=== PATIENT | female | born 1965 | race Caucasian/White ===

== ENCOUNTER 2022-06-04 07:44 | Outpatient (REF) | payer OTHER, SELFPAY ==
[2022-06-04 11:54] LABS: Hematocrit 43.3 % (37.0-47.0); Hemoglobin 14.4 g/dl (12.0-16.0); Mean Corpuscular HGB Conc 33.3 g/dl (31.0-35.0); Mean Corpuscular Hemoglobin 31.5 pg (27.0-33.0); Mean Corpuscular Volume 94.7 fL (80.0-98.0); Platelet Count 209 X10*3/uL (160-400); Red Blood Count 4.57 X10*6/uL (4.20-5.50); Red Cell Distribution Width 12.6 % (11.0-16.0)
[2022-06-04 13:08] LABS: Alanine Aminotransferase 7 U/L (0-31); Albumin Level 4.1 g/dL (3.5-5.0); Alkaline Phosphatase 104 U/L (39-117); Anion Gap 15 (12-20); Aspartate Amino Transferase 16 U/L (5-31); Blood Urea Nitrogen 8 mg/dL (9-16); Calcium 9.5 mg/dL (8.4-10.2); Carbon Dioxide 24 mmol/L (22-29); Chloride 107 mmol/L (96-108); Cholesterol 268 mg/dL; Estimated Glomerular Filt Rate > 60; Glucose Fasting 88 mg/dL (60-99); HDL Cholesterol 32 mg/dL; LDL Cholesterol Calculated 203 mg/dl; Sodium 142 mmol/L (135-145); Total Protein 6.7 g/dL (6.5-8.0); Triglycerides 165 mg/dL
[2022-06-04 13:09] LABS: TSH reflex Free T4 3.18 uIU/mL (0.32-4.0)
== END 2022-06-04 07:45 | disposition home or self-care (01) ==
LOC: HO.WFDLDS 07:44
PROVIDERS: Visit Provider Nurse Practitioner Family
DX: Z00.00 Encounter for general adult medical examination without abnormal findings (principal)
CPT/HCPCS: 36415; 80053; 80061; 82306; 84443; 85027

== ENCOUNTER → 2022-09-21 07:35 | Outpatient (BNVA) | payer OTHER, SELFPAY | PROVIDERS: PCP Nurse Practitioner Family; Visit Provider Physician Assistant ==

== ENCOUNTER 2022-10-07 07:33 | Outpatient (REF) | payer OTHER, SELFPAY | END 2022-10-07 07:34 | disposition home or self-care (01) | LOC: HO.WFDLDS 07:33 | PROVIDERS: Visit Provider Nurse Practitioner Family | DX: E55.9 Vitamin D deficiency, unspecified (principal) | CPT/HCPCS: 36415; 82306 ==

== ENCOUNTER 2022-10-08 09:08 | Outpatient (AMB) | payer OTHER, SELFPAY ==
[2022-10-08 09:16] VITALS: BP 132/80; PULSE 87; RESP 15; TEMP 36.5; O2SAT 98; BMI 31.1
--- NOTE | 2022-10-08 09:16 | A.OFFPC_ITS ---
Vital Signs 10/08/22 09:16 Height 5 ft 6 in Weight 193 lb BMI 31.1 BP 132/80 Blood Pressure Location Rt brachial Position Sitting Respiration 15 Pulse 87 Pulse Source Pulse Oximeter Temp 97.7 F Temp Source Temporal Artery Scan Pulse Oximetry (%) 98 Oxygen Delivery Method Room Air Intake Visit Reasons: 3 mos anxiety/depression Intake Note: Patient is following up with anxiety and depression and states things are going well. 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 Accompanied by: Self / Same As Patient Allergies No Known Allergies Allergy (Verified 10/08/22 10:25) Medication List - Last Reconciled 10/08/22 by John Bejarano CNP bisacodyl (Dulcolax (bisacodyl)) 20 mg (4 x 5 mg) PO ONCE 1 day cholecalciferol (vitamin D3) 25 mcg PO DAILY 90 days cholecalciferol (vitamin D3) 1,250 mcg PO QWEEK 8 weeks hydroxyzine HCl 25 mg PO BID PRN 30 days naltrexone 50 mg PO DAILY 30 days polyethylene glycol 3350 (Miralax) 238 grams PO ONCE 1 day sertraline 100 mg PO DAILY 90 days trazodone 50 mg PO BEDTIME PRN 90 days Tobacco use date assessed: 07/02/22 Dental Screening Dental Screen Date: 10/08/22 Did you have a dental visit in the last 12 months?: No Did you have a dental problem in the last 6 months where you did not have access to dental care?: No Was dental information given to patient?: Patient has dentist HPI HPI Comments History of Present Illness Details 48-year-old female presents for anxiety and depression follow-up She notes she has been taking her medications as prescribed with control symptoms She reports improved sleep No acute symptoms today She admits to smoking 3 packs of cigarette weekly She notes she has not consumed alcohol in the past 6 months She notes she has not called back to schedule appointments for mammogram and colonoscopy [facility] Medical History Anxiety Depression EtOH dependence Surgical History History of ankle surgery Family History Mother Hypertension Thyroid disorder Social History (Reviewed 10/08/22 @ 09:25 by Maureen Han Household Members: None Housing: House Alcohol intake: former Patient Tobacco Use Status: Current someday Tobacco user Cigarettes Per Day: 5 e-Cigarette/Vaping Use: Never Used service: No Current occupational status: employed Current occupation: [employer] Cognitive needs: No Hearing needs: No Vision needs: Yes Questionnaire PHQ-9 Over the last 2 weeks, how often have you been bothered by any of the following problems? 1. Little interest or pleasure in doing things: not at all 2. Feeling down, depressed, or hopeless: not at all 3. Trouble falling or staying asleep, or sleeping too much: not at all 4. Feeling tired or having little energy: not at all 5. Poor appetite or overeating: not at all 6. Feeling bad about yourself - or that you are a failure or have let yourself or your family down: not at all 7. Trouble concentrating on things, such as reading the newspaper or watching television: not at all 8. Moving or speaking so slowly that other people could have noticed. Or the opposite - being so fidgety or restless that you have been moving around a lot more than usual: not at all 9. Thoughts that you would be better off or of hurting yourself in some way: not at all Total score: 0 Depression Screening Interpretation: Negative 72059 - PHQ-9 Billing: Yes Source: Developed by Drs. Gaston Purvis, Ellie Medina, Lamine Rockwell and colleagues, with an educational darleen from [employer]. Thrive Questionnaire Date Thrive assessed: 06/02/22 JERALD-7 AMB Questionnaire JERALD-7 Date JERALD - 7 assessed: 10/08/22 Feeling nervous, anxious, or on edge: 0 = Not at all Not being able to stop or control worryin = Not at all Worrying too much about different things: 0 = Not at all Trouble relaxin = Not at all Being so restless that it is hard to sit still: 0 = Not at all Becoming easily annoyed or irritable: 0 = Not at all Feeling afraid as if something awful might happen: 0 = Not at all Total JERALD-7 score (0-4 normal; 5-9 mild; 10-14 moderate; 15-21 severe): 0 Source: Developed by Drs. Gaston Purvis, Ellie Medina, Lamine Rockwell and colleagues, with an educational darleen from [employer]. JERALD-7 Assessment Billing JERALD-7 Assessment Tool: JERALD-7 Assessment 97769 Review of Systems Const Details: Const Denies chills, Denies fatigue, Denies fever(s), Denies headache(s) and Denies weakness ENT Denies change in vision, Denies dizziness, Denies headache(s), Denies hearing loss, Denies nasal congestion, Denies sinus pain, Denies sinus pressure and Denies sore throat Resp Denies cough, Denies dyspnea, Denies wheezing and Denies other (shortness of breath) Cardio Denies chest pain, Denies lightheadedness, Denies dyspnea and Denies other (palpitations) Neuro Denies dizziness, Denies headache(s), Denies numbness, Denies tingling and Denies weakness Psych Denies anxiety, Denies depression, Denies memory?loss Endo Denies fatigue Aller/Immun Denies wheezing Physical exam (Primary Care) Vital Signs: Last Vital Signs Temp 97.7 F 10/08/22 09:16 Pulse 87 10/08/22 09:16 Resp 15 10/08/22 09:16 BP 132/80 10/08/22 09:16 Pulse Ox 98 10/08/22 09:16 Oxygen Delivery Method Room Air 10/08/22 09:16 BMI result Body Mass Index 31.1 Tobacco/Smoking Status: Tobacco use Status Tobacco use date assessed 07/02/22 10/08/22 09:25 Patient Tobacco Use Status Current someday Tobacco 10/08/22 09:25 e-Cigarette/Vaping Use Never Used 10/08/22 09:25 PHQ-9: PHQ-9 Score PHQ-9: Total score 0 10/08/22 09:25 Depression Screening Interpretation: Negative Thrive Assessment: Date of Thrive Assessment Date Thrive assessed 06/02/22 10/08/22 09:25 Const Other: Const General: well developed; No acute distress Nutritional Appearance: well nourished Orientation/consciousness: patient oriented x3 HEENT Head: Yes normocephalic and Yes atraumatic Eyes General: appearance normal, both eyes and all related structures Pupils: Equal, round and reactive pupils present EOM: EOMs intact bilaterally Resp Effort & Inspection: normal respiratory effort Auscultation: clear to auscultation bilaterally Cardio Rate: regular rate Rhythm: regular rhythm Heart sounds: S1 normal heart sound present, S2 normal heart sound present, no gallops, no murmurs and no rubs Bruits: no abdominal aortic bruits and no carotid bruits Neuro General: patient oriented x3 and gait normal, no focal neuro deficit Cranial nerves: Yes Equal, round and reactive pupils present Psych Appearance: grossly normal Affect: normal affect Attitude: cooperative Thought process: Normal thought process present Assessment and Plan Assessment & Plan (1) Depression: Code(s): F32.A - Depression, unspecified Plan: PHQ-9 and JERALD-7 scores are normal Continue to take hydroxyzine, sertraline, and trazodone as prescribed Continue follow-up with therapist as planned Routine exercise encouraged Follow-up in 3 months or return sooner with new or worsening symptoms Verbalized understanding and agreed with treatment plan. (2) Anxiety: Code(s): F41.9 - Anxiety disorder, unspecified Plan: As above (3) Insomnia: Code(s): G47.00 - Insomnia, unspecified Plan: She reports improved sleep Trazodone as prescribed Return with new or worsening symptoms Verbalized understanding and agreed with treatment plan (4) Vitamin D deficiency: Code(s): E55.9 - Vitamin D deficiency, unspecified Plan: Recent vitamin-D level is normal Continue with current treatment regimen May intend vitamin-D level from the sun Return with symptoms or concerns Verbalized understanding and agreed with treatment plan. (5) Hyperlipidemia: Code(s): E78.5 - Hyperlipidemia, unspecified Plan: Recent lab results reviewed with the patient Elevated triglyceride, cholesterol, and LDL levels. HDL is low Her 10-year risk of ASCVD is 12.6% Atorvastatin as prescribed Limits foods high in saturated fat and avoid foods high trans fat Routine exercise encouraged Lipid panel ordered. Encouraged to get fasting blood work done before next visit Follow-up in 3 months Verbalized understanding and agreed with treatment plan (6) Breast cancer screening by mammogram: Code(s): Z12.31 - Encounter for screening mammogram for malignant neoplasm of breast Plan: She notes she has not called back to schedule appointments for mammogram and colonoscopy Encouraged to call and schedule both appointments (7) Colon cancer screening: Code(s): Z12.11 - Encounter for screening for malignant neoplasm of colon Plan: As above Orders: Orders Lipid Panel Today E78.5 - Hyperlipidemia, unspecified Medications: New atorvastatin 10 mg PO BEDTIME 90 days 90 tabs 1RF Coding Level of Care Code Est Pt Level 4 (64350) Diagnoses Depression F32.A Anxiety F41.9 Insomnia G47.00 Vitamin D deficiency E55.9 Hyperlipidemia E78.5 Breast cancer screening by mammogram Z12.31 Colon cancer screening Z12.11 Additional Codes JERALD-7 Assessment Billing - JERALD-7 Assessment Tool: JERALD-7 Assessment [id number] ([id number]) Time Spent (min) 35
== END 2022-10-08 10:37 | disposition home or self-care (01) ==
PROVIDERS: Visit Provider Nurse Practitioner Family
DX: F32.A Depression, unspecified (principal); F41.9 Anxiety disorder, unspecified; G47.00 Insomnia, unspecified; E55.9 Vitamin D deficiency, unspecified; E78.5 Hyperlipidemia, unspecified; Z12.31 Encounter for screening mammogram for malignant neoplasm of breast; Z12.11 Encounter for screening for malignant neoplasm of colon
CPT/HCPCS: 96127; 99214

== ENCOUNTER 2022-12-31 09:55 | Outpatient (AMB) | payer OTHER, SELFPAY ==
[2022-12-31 09:57] VITALS: BP 128/76; PULSE 86; RESP 12; TEMP 36.1; O2SAT 99; BMI 32.5
--- NOTE | 2022-12-31 09:57 | MHC.PC.OV ---
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 Her triglyceride, cholesterol, and LDL levels were elevated. She was prescribed atorvastatin and advised to get lipid panel fasting blood work done before her follow-up in 3 months for hyperlipidemia, anxiety, and depression. She notes she has been taking her medications as prescribed. She reports controlled anxiety and depression symptoms. She notes she has not been required to take her Hydroxyzine and Trazadone. She has not gotten her lipid panel blood work done. She states she has not started taking Atorvastatin. She intends to eating healthy and exercising before initiating medication therapy. She states that she continues to smoke 3 packs of cigarette weekly. She notes she has not consumed alcohol in the past 9 months. She ahs not taken Naltrexone for the past 6 months. She notes she still has not called back to schedule appointments for mammogram and colonoscopy. [facility] Medical History EtOH dependence Depression Anxiety Surgical History History of ankle surgery Family History Mother Hypertension Thyroid disorder Social History Household Members: None Housing: House Alcohol intake: former Patient Tobacco Use Status: Current someday Tobacco user Cigarettes Per Day: 5 e-Cigarette/Vaping Use: Never Used service: No Current occupational status: employed Current occupation: [employer] Cognitive needs: No Hearing needs: No Vision needs: No Questionnaire PHQ-9 Over the last 2 weeks, how often have you been bothered by any of the following problems? 1. Little interest or pleasure in doing things: not at all 2. Feeling down, depressed, or hopeless: not at all 3. Trouble falling or staying asleep, or sleeping too much: several days 4. Feeling tired or having little energy: several days 5. Poor appetite or overeating: not at all 6. Feeling bad about yourself - or that you are a failure or have let yourself or your family down: not at all 7. Trouble concentrating on things, such as reading the newspaper or watching television: not at all 8. Moving or speaking so slowly that other people could have noticed. Or the opposite - being so fidgety or restless that you have been moving around a lot more than usual: not at all 9. Thoughts that you would be better off or of hurting yourself in some way: not at all Total score: 2 Depression Screening Interpretation: Negative Depression Screening Done: Yes Source: Developed by Drs. Gaston Purvis, Ellie Medina, Lamine Rockwell and colleagues, with an educational darleen from [employer]. Thrive Questionnaire Date Thrive assessed: 06/02/22 JERALD-7 AMB Questionnaire JERALD-7 Date JERALD - 7 assessed: 10/08/22 Feeling nervous, anxious, or on edge: 1 = Several days Not being able to stop or control worryin = Not at all Worrying too much about different things: 1 = Several days Trouble relaxin = Several days Being so restless that it is hard to sit still: 1 = Several days Becoming easily annoyed or irritable: 0 = Not at all Feeling afraid as if something awful might happen: 0 = Not at all Total JERALD-7 score (0-4 normal; 5-9 mild; 10-14 moderate; 15-21 severe): 4 Source: Developed by Drs. Gaston Purvis, Ellie Medina, Lamine Rockwell and colleagues, with an educational darleen from [employer]. Review of Systems Const Details: Const Denies chills, Denies fatigue, Denies fever(s), Denies headache(s) and Denies weakness ENT Denies dizziness and Denies headache(s) Card Denies chest pain, Denies lightheadedness, Denies dyspnea and Denies other (Palpitations) Resp Denies cough, Denies dyspnea, Denies wheezing and Denies other ( shortness of breath) GI Denies abdominal pain, Denies melena, Denies hematochezia, Denies change in bowel habits, Denies dyspepsia and Denies nausea Denies hematuria and Denies dysuria Musc Denies abnormal gait, Denies myalgias, Denies arthralgias, Denies numbness and Denies tingling Skin/Breast Denies rash, Denies unusual bruising and Denies wounds Neuro Denies abnormal gait, Denies dizziness, Denies headache(s), Denies memory loss, Denies numbness, Denies Sensory deficit (Neuro), Denies tingling and Denies weakness Psych Denies anxiety, Denies depression, Denies memory loss Endo Denies cold intolerance, Denies fatigue, Denies heat intolerance, Denies polydipsia and Denies polyuria Aller/Immun Denies wheezing Physical exam (Primary Care) Vital Signs: Last Vital Signs Temp 97 F 12/31/22 09:57 Pulse 86 12/31/22 09:57 Resp 12 12/31/22 09:57 BP 128/76 12/31/22 09:57 Pulse Ox 99 12/31/22 09:57 Oxygen Delivery Method Room Air 12/31/22 09:57 BMI result Body Mass Index 32.5 Tobacco/Smoking Status: Tobacco use Status Tobacco use date assessed 07/02/22 12/31/22 10:08 Patient Tobacco Use Status Current someday Tobacco 12/31/22 10:08 e-Cigarette/Vaping Use Never Used 12/31/22 10:08 PHQ-9: PHQ-9 Score PHQ-9: Total score 2 12/31/22 10:08 Depression Screening Interpretation: Negative Thrive Assessment: Date of Thrive Assessment Date Thrive assessed 06/02/22 12/31/22 10:08 Const Other: General: no acute distress and well developed Nutritional Appearance: well nourished Orientation/consciousness: patient oriented x3 HENMT Head: Yes normocephalic and Yes atraumatic Eyes General: appearance normal, both eyes and all related structures Pupils: Equal, round and reactive pupils present EOM: EOMs intact bilaterally Resp Effort & Inspection: normal respiratory effort Auscultation: clear to auscultation bilaterally Cardio Rate: regular rate Rhythm: regular rhythm Heart sounds: S1 normal heart sound present, S2 normal heart sound present, no gallops, no murmurs and no rubs GI Palpation (GI): No Abdominal aortic bruit present, Soft to palpation, nontender, No hepatosplenomegaly present and No Rebound tenderness present Auscultation: normal bowel sounds General: Yes no CVA tenderness Back/Spine/Pelvis Back: no CVA tenderness Cervical Spine: cervical ROM normal and No Cervical spine tenderness Thoracic/Lumbar Spine: thoraco-lumbar ROM normal, No pain with thoraco-lumbar ROM, No thoracic spinal tenderness and No lumbar spinal tenderness Extrem General: Yes normal to inspection, No edema and No calf tenderness Skin General: warm and dry. Normal skin color. Normal skin turgor Neuro General: patient oriented x3, gait normal and no focal neuro deficit Cranial nerves: Yes Equal, round and reactive pupils present Cognition (Neuro): normal cognition Gait exam (Neuro): Normal gait present Sensory Exam: No Sensory deficit (Neuro) Psych Appearance: grossly normal Affect: normal affect Attitude: cooperative Thought process: Normal thought process present Assessment and Plan Assessment & Plan (1) Anxiety: Code(s): F41.9 - Anxiety disorder, unspecified Plan: PHQ-9 and JERALD-7 scores are negative She reports control anxiety and depression symptoms with current treatment regimen Continue with current treatment regimen Routine exercise encouraged Follow-up in 3 months or return sooner with worsening or new symptoms Encouraged to call and make an appointment for a mammogram and colonoscopy Verbalized understanding and agreed with treatment plan. (2) Depression: Code(s): F32.A - Depression, unspecified Plan: As above (3) Hyperlipidemia: Code(s): E78.5 - Hyperlipidemia, unspecified Qualifiers: Hyperlipidemia type: mixed hyperlipidemia Qualified Code(s): E78.2 - Mixed hyperlipidemia Plan: Recent triglycerides, total cholesterol, and LDL levels were elevated. Atorvastatin was prescribed. 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 Advised to limit foods high in saturated fat and avoid foods high trans fat Routine exercise encouraged Advised to get fasting lipid panel blood work done a few days before her next visit Follow-up in 3 months or return sooner with symptoms or concerns Verbalized understanding and agreed with treatment plan. (4) Ready to quit smoking: Code(s): F17.200 - Nicotine dependence, unspecified, uncomplicated Plan: She states that she continues to smoke 3 packs of cigarette weekly. She declines medication treatment for smoking cessation and states that she would quit cold turkey. Instructed on the health risks and complications of cigarette smoking Smoking cessation encouraged Advised to inform her PCP if she changes her mind on medication treatment for smoking cessation Verbalized understanding and agreed with treatment plan. Medications: Discontinued cholecalciferol (vitamin D3) Discontinued Reason: Doctor's Order 1,250 mcg PO QWEEK 8 weeks 8 tabs 0RF Coding Level of Care Code Est Pt Level 3 (09833) Diagnoses Anxiety F41.9 Depression F32.A Mixed hyperlipidemia E78.2 Hyperlipidemia type: mixed hyperlipidemia Ready to quit smoking F17.200
== END 2022-12-31 10:24 | disposition home or self-care (01) ==
PROVIDERS: PCP Nurse Practitioner Family; Visit Provider Nurse Practitioner Family
DX: E78.2 Mixed hyperlipidemia (principal); F41.9 Anxiety disorder, unspecified; F32.A Depression, unspecified; F17.200 Nicotine dependence, unspecified, uncomplicated
CPT/HCPCS: 99213

== ENCOUNTER 2023-03-07 | Outpatient (REF) | payer OTHER, SELFPAY ==
[2023-03-09 12:48] LABS: Influenza A PCR NEGATIVE (Negative); Influenza B PCR NEGATIVE (Negative); Resp Syncy Virus RNA Qual PCR POSITIVE (Negative); SARS COV2 PCR INHOUSE NEGATIVE (Negative)
== END 2023-03-07 00:01 | disposition home or self-care (01) ==
LOC: HO.LNP
PROVIDERS: Visit Provider Nurse Practitioner Family
DX: Z11.52 Encounter for screening for COVID-19 (principal); Z20.822 Contact with and (suspected) exposure to COVID-19; J06.9 Acute upper respiratory infection, unspecified; R05.9 Cough, unspecified
CPT/HCPCS: 0241U

== ENCOUNTER 2023-03-07 15:26 | Outpatient (AMB) | payer OTHER, SELFPAY ==
--- NOTE | 2023-03-07 15:27 | A.OFFPC_ITS ---
Vital Signs 03/07/23 15:34 Height 5 ft 6 in Weight 203 lb 6 oz BMI 32.8 BP 132/74 Blood Pressure Location Rt brachial Position Sitting Respiration 14 Pulse 99 Pulse Source Pulse Oximeter Temp 98 F Temp Source Temporal Artery Scan Pulse Oximetry (%) 98 Oxygen Delivery Method Room Air Intake Visit Reasons: ? Bronchitis Intake Note: Patient states that shes been experiencing a bad cough for a couple weeks due to her grand daughter being sick. Patient states that grand daughter recently paris jamil positive for rsv and she wants to make sure this is not what it is. 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 Accompanied by: Self / Same As Patient Allergies No Known Allergies Allergy (Verified 03/07/23 15:43) Medication List - Last Reconciled 03/07/23 by John Bejarano CNP cholecalciferol (vitamin D3) 25 mcg PO DAILY 90 days hydroxyzine HCl 25 mg PO BID PRN 30 days sertraline 100 mg PO DAILY 90 days trazodone 50 mg PO BEDTIME PRN 90 days Tobacco use date assessed: 07/02/22 Dental Screening Dental Screen Date: 03/07/23 Did you have a dental visit in the last 12 months?: Yes Did you have a dental problem in the last 6 months where you did not have access to dental care?: No Was dental information given to patient?: Patient has dentist HPI HPI Comments History of Present Illness Details 57-year-old female present with complain ts of nonproductive cough for the past 2 weeks. She took NyQuil and Mucinex last night and has been experiencing some relief today She notes that she has been exposed to her granddaughter who were sick and recently tested positive for RSV No shortness of breath or wheezing. No fever, chills, body aches, fatigue, weakness [facility] Medical History EtOH dependence Depression Anxiety Surgical History History of ankle surgery Family History Mother Hypertension Thyroid disorder Social History Household Members: None Housing: House Alcohol intake: former Patient Tobacco Use Status: Current someday Tobacco user Cigarettes Per Day: 5 e-Cigarette/Vaping Use: Never Used service: No Current occupational status: employed Current occupation: [employer] Cognitive needs: No Hearing needs: No Vision needs: No Questionnaire Thrive Questionnaire Date Thrive assessed: 06/02/22 JERALD-7 AMB Questionnaire JERALD-7 Date JERALD - 7 assessed: 10/08/22 Source: Developed by Drs. Gaston Purvis, Ellie Medina, Lamine Rockwell and colleagues, with an educational darleen from [employer]. Review of Systems Const Details: Const Denies chills, Denies fatigue, Denies fever(s), Denies headache(s) and Denies weakness ENT Denies dizziness and Denies headache(s) Card Denies chest pain, Denies lightheadedness, Denies dyspnea and Denies other (Palpitations) Resp Reports cough, Denies dyspnea, Denies wheezing and Denies other ( shortness of breath) GI Denies abdominal pain, Denies melena, Denies hematochezia, Denies change in bowel habits, Denies dyspepsia and Denies nausea Denies hematuria and Denies dysuria Musc Denies abnormal gait, Denies myalgias, Denies arthralgias, Denies numbness and Denies tingling Skin/Breast Denies rash, Denies unusual bruising and Denies wounds Neuro Denies abnormal gait, Denies dizziness, Denies headache(s), Denies memory loss, Denies numbness, Denies Sensory deficit (Neuro), Denies tingling and Denies w eakness Psych Denies anxiety, Denies depression, Denies memory loss Endo Denies cold intolerance, Denies fatigue, Denies heat intolerance, Denies poly dipsia and Denies polyuria Aller/Immun Denies wheezing Physical exam (Primary Care) Vital Signs: Last Vital Signs Temp 98 F 03/07/23 15:34 Pulse 99 03/07/23 15:34 Resp 14 03/07/23 15:34 BP 132/74 03/07/23 15:34 Pulse Ox 98 03/07/23 15:34 Oxygen Delivery Method Room Air 03/07/23 15:34 BMI result Body Mass Index 32.8 Tobacco/Smoking Status: Tobacco use Status Tobacco use date assessed 07/02/22 03/07/23 15:41 Patient Tobacco Use Status Current someday Tobacco 03/07/23 15:41 e-Cigarette/Vaping Use Never Used 03/07/23 15:41 Thrive Assessment: Date of Thrive Assessment Date Thrive assessed 06/02/22 03/07/23 15:41 Const Other: General: no acute distress and well developed Nutritional Appearance: well nourished Orientation/consciousness: patient oriented x3 HENMT Head is normocephalic Bilateral ear canal and TM are normal Nasal turbinates and oropharynx are pink and moist Sinuses are nontender with palpation No auricular or cervical lymphadenopathy Eyes General: appearance normal, both eyes and all related structures Pupils: Equal, round and reactive pupils present EOM: EOMs intact bilaterally Resp Effort & Inspection: normal respiratory effort Auscultation: Wheezing to auscultation bilaterally Cardio Rate: regular rate Rhythm: regular rhythm Heart sounds: S1 normal heart sound present, S2 normal heart sound present, no gallops, no murmurs and no rubs GI Palpation (GI): No Abdominal aortic bruit present, Soft to palpation, nontender, No hepatosplenomegaly present and No Rebound tenderness present Auscultation: normal bowel sounds General: Yes no CVA tenderness Back/Spine/Pelvis Back: no CVA tenderness Cervical Spine: cervical ROM normal and No Cervical spine tenderness Thoracic/Lumbar Spine: thoraco-lumbar ROM normal, No pain with thoraco-lumbar ROM, No thoracic spinal tenderness and No lumbar spinal tenderness Extrem General: Yes normal to inspection, No edema and No calf tenderness Skin General: warm and dry. Normal skin color. Normal skin turgor Neuro General: patient oriented x3, gait normal and no focal neuro deficit Cranial nerves: Yes Equal, round and reactive pupils present Cognition (Neuro): normal cognition Gait exam (Neuro): Normal gait present Sensory Exam: No Sensory deficit (Neuro) Psych Appearance: grossly normal Affect: normal affect Attitude: cooperative Thought process: Normal thought process present Assessment and Plan Assessment & Plan (1) Cough: Code(s): R05.9 - Cough, unspecified Qualifiers: Cough type: acute Qualified Code(s): R05.1 - Acute cough Plan: Present with 2 weeks of nonproductive cough. Reports sick contact with RSV Lung sounds wheezing bilaterally Likely upper respiratory viral infection. Bronchitis and pneumonia also possible Prednisone and Z-Claudy ordered. Take as prescribed. Hold Hydroxyzine until finished taking Z-Claudy Chest x-ray ordered Adequate hydration and rest encouraged Return with worsening or new symptoms Verbalized understanding and agreed with treatment plan (2) Viral upper respiratory illness: Code(s): J06.9 - Acute upper respiratory infection, unspecified Plan: Likely viral illness though possibly allergies. Superimposed bacterial infection is also possible Viral illness There is no antibiotic medication for viruses.? They must run their course.? Most average 5-7 days but 7-10 days is not uncommon and up to 14 days is still possible.? A cough is often the last symptom to resolve and this can last for weeks in some cases. Rest Hydrate well -? Drink plenty of fluids.? Especially water. Tylenol or ibuprofen for muscle aches, headache, fever/discomfort Prednisone and Z-Claudy as prescribed Cannot rule out COVID-19/RSV/Flu infection Nasal swab acquired and will be sent to the lab Return for new or worsening symptoms Verbalized understanding and agreed with treatment plan. Orders: Orders XR chest 2V Today R05.9 - Cough, unspecified SARS-CoV2/FLU/RSV Today J06.9 - Acute upper respiratory infection, unspecified, R05.9 - Cough, unspecified Medications: New azithromycin (Zithromax Z-Claudy) For 250 mg dose pack: take 500 mg today (day 1), then 250 mg for 4 days (days 2-5) PO 6 tabs 0RF prednisone 40 mg (2 x 20 mg) PO DAILY 5 days 10 tabs 0RF Coding Level of Care Code Est Pt Level 3 (09692) Diagnoses Acute cough R05.1 Cough type: acute Viral upper respiratory illness J06.9
[2023-03-07 15:34] VITALS: BP 132/74; PULSE 99; RESP 14; TEMP 36.6; O2SAT 98; BMI 32.8
== END 2023-03-07 15:52 | disposition home or self-care (01) ==
PROVIDERS: PCP Nurse Practitioner Family; Visit Provider Nurse Practitioner Family
DX: R05.1 Acute cough (principal); J06.9 Acute upper respiratory infection, unspecified
CPT/HCPCS: 99213

== ENCOUNTER 2023-03-08 06:40 | Outpatient (REF) | payer OTHER, SELFPAY ==
--- NOTE | ~2023-03-08 | XR_ITS ---
EXAMINATION: XR chest 2V CLINICAL INFORMATION: Reason for Exam R05.9 - Cough, unspecified COMPARISON: No prior chest x-ray available in our system for comparison at the time of this dictation. TECHNIQUE: XR chest 2V, 2 Views Lungs and Shital: Opacity right upper lobe suprahilar region possibly a patchy infiltrate versus lung mass. Pleura: Normal. Costophrenic angles are sharp. No pneumothorax. Heart: The heart is normal in size. Mediastinum: The mediastinum is within normal limits.. Bones: Skeletal structures included are normal for patient's age. XR/XR chest 2V IMPRESSION: * Opacity right upper lobe suprahilar region possibly a patchy infiltrate versus lung mass. * Recommend follow-up chest x-ray in one month after completion of treatment to ensure complete clearance and exclude underlying pathology, alternatively may consider correlation with follow-up contrast enhanced CT scan..
== END 2023-03-08 06:41 | disposition home or self-care (01) ==
LOC: HO.XRAY 06:40
PROVIDERS: PCP Nurse Practitioner Family; Visit Provider Nurse Practitioner Family
DX: R05.9 Cough, unspecified (principal)
CPT/HCPCS: 71046

== ENCOUNTER 2023-03-08 13:11 | Outpatient (REF) | payer OTHER, SELFPAY | END 2023-03-08 13:12 | disposition home or self-care (01) | LOC: HO.LAB 13:11 | PROVIDERS: Visit Provider Nurse Practitioner Family | DX: Z13.89 Encounter for screening for other disorder (principal) ==

== ENCOUNTER 2024-01-06 13:05 | Outpatient (AMB) | payer OTHER, SELFPAY ==
--- NOTE | 2024-01-06 13:11 | MHC.PC.OV ---
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 Is last menstrual period known: No Post menopausal: No Patient : No Allergies No Known Allergies Allergy (Verified 01/06/24 13:47) Medication List - Last Reconciled 01/06/24 by John Bejarano CNP cholecalciferol (vitamin D3) 25 mcg PO DAILY 90 days sertraline 100 mg PO DAILY 30 days Tobacco use date assessed: 01/06/24 Dental Screening Dental Screen Date: 01/06/24 Did you have a dental visit in the last 12 months?: Yes Did you have a dental problem in the last 6 months where you did not have access to dental care?: No Was dental information given to patient?: Patient has dentist HPI HPI Comments History of Present Illness Details 58-year-old female presents for anxiety and depression follow-up Her last office visit was on 03/07/2023 She is currently on sertraline 100 mg daily which he admits to taking as prescribed without adverse reactions Reports controlled anxiety and depressive symptoms on current treatment regimen. She generally sleeps well She has been taking otc vitamin D. Her vitamin D3 1000 units daily was held in 06/2022 until she completed course of vitamin D3 79762 units daily She notes significant stress from work. 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 [employer] Medical History EtOH dependence Depression Anxiety Surgical History History of ankle surgery Family History Mother Hypertension Thyroid disorder Social History Household Members: None Housing: House Alcohol intake: former Patient Tobacco Use Status: Current someday Tobacco user Cigarettes Per Day: 5 e-Cigarette/Vaping Use: Never Used service: No Current occupational status: employed Current occupation: [employer] Cognitive needs: No Hearing needs: No Vision needs: No Questionnaire PHQ-9 Over the last 2 weeks, how often have you been bothered by any of the following problems? 1. Little interest or pleasure in doing things: not at all 2. Feeling down, depressed, or hopeless: not at all 3. Trouble falling or staying asleep, or sleeping too much: not at all 4. Feeling tired or having little energy: not at all 5. Poor appetite or overeating: not at all 6. Feeling bad about yourself - or that you are a failure or have let yourself or your family down: not at all 7. Trouble concentrating on things, such as reading the newspaper or watching television: not at all 8. Moving or speaking so slowly that other people could have noticed. Or the opposite - being so fidgety or restless that you have been moving around a lot more than usual: not at all 9. Thoughts that you would be better off or of hurting yourself in some way: not at all Total score: 0 Depression Screening Interpretation: Negative Depression Screening Done: Yes 80435 - PHQ-9 Billing: Yes Source: Developed by Drs. Gaston Purvis, Ellie Medina, Lamine Rockwell and colleagues, with an educational darleen from [employer]. Thrive Questionnaire Date Thrive assessed: 01/06/24 I am a: Patient What is your living situation today?: I have a steady place to live Within the past 12 months, did the food you bought not last and you didn't have the money to get more?: Never true Within the past 12 months, did you worry whether your food would run out before you got money to buy more?: Never true Do you have trouble paying for medicines?: No Do you have trouble getting transportation to medical appointments?: No Do you have trouble paying your heating and electricity bill?: No Do you have trouble taking care of your child, family member or friend?: No Do you have trouble with day-to-day activities such as bathing, preparing meals, shopping, managing finances, etc.?: No Are you currently unemployed and looking for a job?: No Are you interested in more education?: No Please select the resources that you would like help with: None Currently or been in a relationship where the following occur: No concerns reported THRIVE Score: 0 JEARLD-7 AMB Questionnaire JERALD-7 Date JERALD - 7 assessed: 01/06/24 Feeling nervous, anxious, or on edge: 0 = Not at all Not being able to stop or control worryin = Not at all Worrying too much about different things: 1 = Several days Trouble relaxin = Not at all Being so restless that it is hard to sit still: 0 = Not at all Becoming easily annoyed or irritable: 0 = Not at all Feeling afraid as if something awful might happen: 0 = Not at all Total JERALD-7 score (0-4 normal; 5-9 mild; 10-14 moderate; 15-21 severe): 1 Source: Developed by Drs. Gaston Purvis, Ellie Medina, Lamine Rockwell and colleagues, with an educational darleen from [employer]. JERALD-7 Assessment Billing JERALD-7 Assessment Tool: JERALD-7 Assessment 27522 Review of Systems Const Details: Const Denies chills, Denies fatigue, Denies fever(s), Denies headache(s) and Denies weakness ENT Denies dizziness and Denies headache(s) Card Denies chest pain, Denies lightheadedness, Denies dyspnea and Denies other (Palpitations) Resp Denies cough, Denies dyspnea, Denies wheezing and Denies other ( shortness of breath) GI Denies abdominal pain, Denies melena, Denies hematochezia, Denies change in bowel habits, Denies dyspepsia and Denies nausea Denies hematuria and Denies dysuria Musc Denies abnormal gait, Denies myalgias, Denies arthralgias, Denies numbness and Denies tingling Skin/Breast Denies rash, Denies unusual bruising and Denies wounds Neuro Denies abnormal gait, Denies dizziness, Denies headache(s), Denies memory loss, Denies numbness, Denies Sensory deficit (Neuro), Denies tingling and Denies weakness Psych Denies anxiety, Denies depression, Denies memory loss Endo Denies cold intolerance, Denies fatigue, Denies heat intolerance, Denies polydipsia and Denies polyuria Aller/Immun Denies wheezing Physical exam (Primary Care) Vital Signs: Last Vital Signs Temp 98.7 F 01/06/24 13:18 Pulse 95 01/06/24 13:18 Resp 16 01/06/24 13:18 BP 154/90 H 01/06/24 13:18 Pulse Ox 97 01/06/24 13:18 Oxygen Delivery Method Room Air 01/06/24 13:18 BMI result Body Mass Index 33.3 Tobacco/Smoking Status: Tobacco use Status Tobacco use date assessed 01/06/24 01/06/24 13:17 Patient Tobacco Use Status Current someday Tobacco 01/06/24 13:11 e-Cigarette/Vaping Use Never Used 01/06/24 13:11 PHQ-9: PHQ-9 Score PHQ-9: Total score 0 01/06/24 13:20 Depression Screening Interpretation: Negative Thrive Assessment: Date of Thrive Assessment Date Thrive assessed 01/06/24 01/06/24 13:20 Currently or been in a relationship where the following occur: No concerns reported Const Other: General: no acute distress and well developed Nutritional Appearance: well nourished Orientation/consciousness: patient oriented x3 HENMT Head: Yes normocephalic and Yes atraumatic Eyes General: appearance normal, both eyes and all related structures Pupils: Equal, round and reactive pupils present EOM: EOMs intact bilaterally Resp Effort & Inspection: normal respiratory effort Auscultation: clear to auscultation bilaterally Cardio Rate: regular rate Rhythm: regular rhythm Heart sounds: S1 normal heart sound present, S2 normal heart sound present, no gallops, no murmurs and no rubs GI Palpation (GI): No Abdominal aortic bruit present, Soft to palpation, nontender, No hepatosplenomegaly present and No Rebound tenderness present Auscultation: normal bowel sounds General: Yes no CVA tenderness Extrem General: Yes normal to inspection, No edema and No calf tenderness Skin General: warm and dry. Normal skin color. Normal skin turgor Neuro General: patient oriented x3, gait normal and no focal neuro deficit Cranial nerves: Yes Equal, round and reactive pupils present Cognition (Neuro): normal cognition Gait exam (Neuro): Normal gait present Sensory Exam: No Sensory deficit (Neuro) Psych Appearance: grossly normal Affect: normal affect Attitude: cooperative Thought process: Normal thought process present Coding Level of Care Code Est Pt Level 4 (00361) Diagnoses Anxiety F41.9 Depression F32.A Vitamin D deficiency E55.9 Elevated blood pressure reading without diagnosis of hypertension R03.0 Additional Codes JERALD-7 Assessment Billing - JERALD-7 Assessment Tool: JERALD-7 Assessment 18471 ([id number]) Assessment & Plan Assessment & Plan (1) Anxiety: Code(s): F41.9 - Anxiety disorder, unspecified Category: Medical Plan: Reports controlled anxiety and depressive symptoms PHQ-9 and JERALD-7 scores are normal Continue current treatment regimen Healthy diet and routine exercise encouraged Advised to get lab work done before her next visit Verbalized understanding and agreed with treatment plan (2) Depression: Code(s): F32.A - Depression, unspecified Category: Medical Plan: Plan as above (3) Vitamin D deficiency: Code(s): E55.9 - Vitamin D deficiency, unspecified Category: Medical Plan: She has been taking otc vitamin D. Her vitamin D3 1000 units daily was held in 06/2022 until she completed course of vitamin D3 76020 units daily Will resume vitamin D3 1000 units daily Will check vitamin-D levels and make changes as needed (4) Elevated blood pressure reading without diagnosis of hypertension: Code(s): R03.0 - Elevated blood-pressure reading, without diagnosis of hypertension Category: Medical Plan: Resting blood pressure is 154/90, above goal of less than 140/90 She denies history of headaches. She notes that her mother has history of hypertension. She states that she has been adding significant amount of salt in her meals; this can increase her blood pressure Work is significant stressor which can increase her blood pressure Low-sodium diet and routine exercise encouraged Advised to check her blood pressure daily, record readings, and bring to her next appointment Follow-up in 1 week or sooner with worsening or new symptoms Verbalized understanding and agreed with the treatment plan Medications: Refilled sertraline 100 mg PO DAILY 30 days 30 tabs 3RF Resumed cholecalciferol (vitamin D3) 25 mcg PO DAILY 90 days 90 tabs 4RF
[2024-01-06 13:18] VITALS: BP 154/90; PULSE 95; RESP 16; TEMP 37.1; O2SAT 97; BMI 33.3
== END 2024-01-06 13:58 | disposition home or self-care (01) ==
PROVIDERS: PCP Nurse Practitioner Family; Visit Provider Nurse Practitioner Family
DX: F41.9 Anxiety disorder, unspecified (principal); F32.A Depression, unspecified; E55.9 Vitamin D deficiency, unspecified; R03.0 Elevated blood-pressure reading, without diagnosis of hypertension

== ENCOUNTER → 2024-01-06 13:05 | Outpatient (BNVA) | payer OTHER, SELFPAY | PROVIDERS: PCP Nurse Practitioner Family; Visit Provider Nurse Practitioner Family | DX: F41.9 Anxiety disorder, unspecified (principal); F32.A Depression, unspecified; E55.9 Vitamin D deficiency, unspecified; R03.0 Elevated blood-pressure reading, without diagnosis of hypertension; Z79.899 Other long term (current) drug therapy | CPT/HCPCS: 96127 ==

== ENCOUNTER 2024-01-09 07:28 | Outpatient (REF) | payer OTHER, SELFPAY ==
[2024-01-09 10:39] LABS: MANUAL DIFF FLAG NO
[2024-01-09 10:48] LABS: Basophils Absolute Auto 0.1 X10*3/uL (0.0-0.2); Basophils Percent Auto 1.4 % (0-2); Eosinophils Absolute Auto 0.4 X10*3/uL (0.0-0.4); Eosinophils Percent Auto 5.1 % (0-4); Hematocrit 45.4 % (37.0-47.0); Hemoglobin 14.7 g/dl (12.0-16.0); Imm Gran Abs Auto 0.03 X10*3/uL (0.00-0.03); Imm Gran Pct Auto 0.4 % (0.0-0.4); Lymphocytes Percent Auto 27.5 % (20-40); Mean Corpuscular HGB Conc 32.4 g/dl (31.0-35.0); Mean Corpuscular Hemoglobin 28.3 pg (27.0-33.0); Mean Corpuscular Volume 87.3 fL (80.0-98.0); Mean Platelet Volume 11.3 fL (9.4-12.3); Monocytes Absolute Auto 0.6 X10*3/uL (0.1-1.2); Monocytes Percent Auto 8.7 % (2-11); Neutrophils Absolute Auto 4.1 x10*3/uL (2.0-8.3); Neutrophils Percent Auto 56.9 % (45-73); Platelet Count 233 X10*3/uL (160-400); Red Cell Distribution Width 13.7 % (11.0-16.0); White Blood Count 7.3 X10*3/uL (4.8-10.8)
[2024-01-09 10:51] LABS: Appearance Urine Clear; Color Urine Yellow; Glucose Urine UA Negative (Negative); Leukocyte Esterase Urine Negative (Negative); Nitrite Urine Negative (Negative); PH 5.5 (5.0-9.0); Urine Blood Negative (Negative); Urine Ketones Negative (Negative); Urine Protein Negative (Neg-Trace)
[2024-01-09 11:04] LABS: Alanine Aminotransferase 10 U/L (0-31); Albumin Level 4.2 g/dL (3.5-5.0); Alkaline Phosphatase 114 U/L (39-117); Anion Gap 11 (12-20); Aspartate Amino Transferase 13 U/L (5-31); Bilirubin Total 0.4 mg/dL (0.0-1.0); Blood Urea Nitrogen 13 mg/dL (9-16); Calcium 9.4 mg/dL (8.4-10.2); Carbon Dioxide 26 mmol/L (22-29); Chloride 109 mmol/L (96-108); Cholesterol 221 mg/dL (<200); Estimated Glomerular Filt Rate > 60; Glucose Fasting 111 mg/dL (60-99); HDL Cholesterol 32 mg/dL (>40); LDL Cholesterol Calculated 155 mg/dL (<100); Potassium 4.1 mmol/L (3.3-5.1); Sodium 142 mmol/L (135-145); Total Protein 7.2 g/dL (6.5-8.0); Triglycerides 170 mg/dL (<150)
[2024-01-09 11:19] LABS: Creatinine Urine 154.15 mg/dL; Microalbum/Creatinine Ratio Ur 5.1 ug/mg cr (<30)
[2024-01-09 11:25] LABS: TSH reflex Free T4 3.83 uIU/mL (0.32-4.0); Vitamin D 25-OH Total 38.1 ng/mL (>30)
== END 2024-01-09 07:29 | disposition home or self-care (01) ==
LOC: HO.WFDLDS 07:28
PROVIDERS: Visit Provider Nurse Practitioner Family
DX: Z00.00 Encounter for general adult medical examination without abnormal findings (principal); E55.9 Vitamin D deficiency, unspecified
CPT/HCPCS: 36415; 80053; 80061; 81003; 82043; 82306; 82570; 84443; 85025

== ENCOUNTER 2024-01-16 08:21 | Outpatient (AMB) | payer OTHER, SELFPAY ==
--- NOTE | 2024-01-16 08:23 | MHC.PC.OV ---
Vital Signs 01/16/24 08:27 Height 5 ft 6 in Weight 205 lb 6 oz BMI 33.1 BP 148/94 H Blood Pressure Location Rt brachial Position Sitting Respiration 16 Pulse 83 Pulse Source Pulse Oximeter Temp 98.5 F Temp Source Oral Pulse Oximetry (%) 99 Oxygen Delivery Method Room Air Intake Visit Reasons: blood pressure check Intake Note: patient here for Blood pressure checkr Compliance Lead Required: No Is last menstrual period known: No Post menopausal: No Patient : No Allergies No Known Allergies Allergy (Verified 01/16/24 08:36) Medication List - Last Reconciled 01/16/24 by John Bejarano CNP cholecalciferol (vitamin D3) 25 mcg PO DAILY 90 days sertraline 100 mg PO DAILY 30 days Tobacco use date assessed: 01/16/24 Dental Screening Dental Screen Date: 01/16/24 Did you have a dental visit in the last 12 months?: Yes Did you have a dental problem in the last 6 months where you did not have access to dental care?: No Was dental information given to patient?: Patient has dentist HPI HPI Comments History of Present Illness Details 58-year-old female presents for elevated blood pressure follow-up Her blood pressure was 154/90 at her last visit 10 days ago. Lifestyle changes encouraged advised to follow-up in 1 week She admits to making healthy lifestyle changes, including low-sodium diet and running around for work Her mother has history of hypertension She offers no complaints and denies acute symptoms at this time She did not bring blood pressure log as planned for this visit PFSH Medical History EtOH dependence Depression Anxiety Surgical History History of ankle surgery Family History Mother Hypertension Thyroid disorder Social History Household Members: None Housing: House Alcohol intake: former Patient Tobacco Use Status: Current someday Tobacco user Cigarettes Per Day: 5 e-Cigarette/Vaping Use: Never Used Patient : No service: No Current occupational status: employed Current occupation: [employer] Cognitive needs: No Hearing needs: No Vision needs: No Questionnaire PHQ-9 Over the last 2 weeks, how often have you been bothered by any of the following problems? 1. Little interest or pleasure in doing things: not at all 2. Feeling down, depressed, or hopeless: not at all 3. Trouble falling or staying asleep, or sleeping too much: not at all 4. Feeling tired or having little energy: not at all 5. Poor appetite or overeating: not at all 6. Feeling bad about yourself - or that you are a failure or have let yourself or your family down: not at all 7. Trouble concentrating on things, such as reading the newspaper or watching television: not at all 8. Moving or speaking so slowly that other people could have noticed. Or the opposite - being so fidgety or restless that you have been moving around a lot more than usual: not at all 9. Thoughts that you would be better off or of hurting yourself in some way: not at all Total score: 0 Source: Developed by Drs. Gaston Purvis, Ellie Medina, Lamine Rockwell and colleagues, with an educational darleen from [employer]. Thrive Questionnaire Date Thrive assessed: 01/06/24 I am a: Patient What is your living situation today?: I have a steady place to live Within the past 12 months, did the food you bought not last and you didn't have the money to get more?: Never true Within the past 12 months, did you worry whether your food would run out before you got money to buy more?: Never true Do you have trouble paying for medicines?: No Do you have trouble getting transportation to medical appointments?: No Do you have trouble paying your heating and electricity bill?: No Do you have trouble taking care of your child, family member or friend?: No Do you have trouble with day-to-day activities such as bathing, preparing meals, shopping, managing finances, etc.?: No Are you currently unemployed and looking for a job?: No Are you interested in more education?: No Please select the resources that you would like help with: None Currently or been in a relationship where the following occur: No concerns reported THRIVE Score: 0 AUDIT C Alcohol Use Questionnaire (AUDIT-C) 1. How often do you have a drink containing alcohol?: Never Total Score: 0 JERALD-7 AMB Questionnaire JERALD-7 Date JERALD - 7 assessed: 01/06/24 Feeling nervous, anxious, or on edge: 0 = Not at all Not being able to stop or control worryin = Not at all Worrying too much about different things: 0 = Not at all Trouble relaxin = Not at all Being so restless that it is hard to sit still: 0 = Not at all Becoming easily annoyed or irritable: 0 = Not at all Feeling afraid as if something awful might happen: 0 = Not at all Total JERALD-7 score (0-4 normal; 5-9 mild; 10-14 moderate; 15-21 severe): 0 Source: Developed by Drs. Gaston Purvis, Ellie Medina, Lamine Rockwell and colleagues, with an educational darleen from [employer]. Review of Systems Const Details: Const Denies chills, Denies fatigue, Denies fever(s), Denies headache(s) and Denies weakness ENT Denies dizziness and Denies headache(s) Card Denies chest pain, Denies lightheadedness, Denies dyspnea and Denies other (Palpitations) Resp Denies cough, Denies dyspnea, Denies wheezing and Denies other ( shortness of breath) GI Denies abdominal pain, Denies melena, Denies hematochezia, Denies change in bowel habits, Denies dyspepsia and Denies nausea Denies hematuria and Denies dysuria Musc Denies abnormal gait, Denies myalgias, Denies arthralgias, Denies numbness and Denies tingling Skin/Breast Denies rash, Denies unusual bruising and Denies wounds Neuro Denies abnormal gait, Denies dizziness, Denies headache(s), Denies memory loss, Denies numbness, Denies Sensory deficit (Neuro), Denies tingling and Denies weakness Psych Denies anxiety, Denies depression, Denies memory loss Endo Denies cold intolerance, Denies fatigue, Denies heat intolerance, Denies polydipsia and Denies polyuria Aller/Immun Denies wheezing Physical exam (Primary Care) Vital Signs: Last Vital Signs Temp 98.5 F 01/16/24 08:27 Pulse 83 01/16/24 08:27 Resp 16 01/16/24 08:27 BP 148/94 H 01/16/24 08:27 Pulse Ox 99 01/16/24 08:27 Oxygen Delivery Method Room Air 01/16/24 08:27 BMI result Body Mass Index 33.1 Tobacco/Smoking Status: Tobacco use Status Tobacco use date assessed 01/16/24 01/16/24 08:30 Patient Tobacco Use Status Current someday Tobacco 01/16/24 08:25 e-Cigarette/Vaping Use Never Used 01/16/24 08:25 PHQ-9: PHQ-9 Score PHQ-9: Total score 0 01/16/24 08:25 Thrive Assessment: Date of Thrive Assessment Date Thrive assessed 01/06/24 01/16/24 08:25 Currently or been in a relationship where the following occur: No concerns reported Const Other: General: no acute distress and well developed Nutritional Appearance: well nourished Orientation/consciousness: patient oriented x3 HENMT Head: Yes normocephalic and Yes atraumatic Eyes General: appearance normal, both eyes and all related structures Pupils: Equal, round and reactive pupils present EOM: EOMs intact bilaterally Resp Effort & Inspection: normal respiratory effort Auscultation: clear to auscultation bilaterally Cardio Rate: regular rate Rhythm: regular rhythm Heart sounds: S1 normal heart sound present, S2 normal heart sound present, no gallops, no murmurs and no rubs GI Palpation (GI): No Abdominal aortic bruit present, Soft to palpation, nontender, No hepatosplenomegaly present and No Rebound tenderness present Auscultation: normal bowel sounds General: Yes no CVA tenderness Back/Spine/Pelvis Back: no CVA tenderness Extrem General: Yes normal to inspection, No edema and No calf tenderness Skin General: warm and dry. Normal skin color. Normal skin turgor Neuro General: patient oriented x3, gait normal and no focal neuro deficit Cranial nerves: Yes Equal, round and reactive pupils present Cognition (Neuro): normal cognition Gait exam (Neuro): Normal gait present Sensory Exam: No Sensory deficit (Neuro) Psych Appearance: grossly normal Affect: normal affect Attitude: cooperative Thought process: Normal thought process present Coding Level of Care Code Est Pt Level 3 (97882) Diagnoses Hypertension I10 Assessment & Plan Assessment & Plan (1) Hypertension: Code(s): I10 - Essential (primary) hypertension Category: Medical Plan: Resting blood pressure is 140/94, above goal of less than 140/90. Blood pressure at last visit was 154/90. She has been maintaining a low-sodium diet. Her mother has hypertension. Will start amlodipine 5 mg daily. Advised to take as prescribed. Instructed risks, benefits, and potential adverse reactions of the medication. Low-sodium diet encouraged. Follow-up in 1 week for nurse visit for blood pressure check in 2 weeks with PCP for hypertension. Return sooner with symptoms or concerns. Verbalized understanding and agreed with the plan. Medications: New amlodipine 5 mg PO DAILY 30 days 30 tabs 3RF
[2024-01-16 08:27] VITALS: BP 148/94; PULSE 83; RESP 16; TEMP 36.9; O2SAT 99; BMI 33.1
== END 2024-01-16 08:45 | disposition home or self-care (01) ==
PROVIDERS: PCP Nurse Practitioner Family; Visit Provider Nurse Practitioner Family
DX: I10 Essential (primary) hypertension (principal)

== ENCOUNTER → 2024-01-16 08:21 | Outpatient (BNVA) | payer OTHER, SELFPAY | PROVIDERS: PCP Nurse Practitioner Family; Visit Provider Nurse Practitioner Family ==

== ENCOUNTER 2024-03-02 07:54 | Outpatient (AMB) | payer OTHER, SELFPAY ==
--- NOTE | 2024-03-02 07:57 | A.OFFPC_ITS ---
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 Reviewed?labs?with?patient:: Fasting?blood?sugar?is?too?high.??A1c?performed?in?office?today?is?5.7% LDL?cholesterol?is?significantly?elevated?and?HDL?cholesterol?is?low Her?other?labs?are?okay Patient?feels?well?today.??No?complaints PFSH Medical History EtOH dependence Depression Anxiety Surgical History History of ankle surgery Family History (Updated 03/02/24 @ 08:03 by Karla Torres) Mother Hypertension Thyroid disorder Social History Household Members: None Housing: House Alcohol intake: former Patient Tobacco Use Status: Current someday Tobacco user Cigarettes Per Day: 5 e-Cigarette/Vaping Use: Never Used service: No Current occupational status: employed Current occupation: [employer] Cognitive needs: No Hearing needs: No Vision needs: No Questionnaire PHQ-9 Over the last 2 weeks, how often have you been bothered by any of the following problems? 1. Little interest or pleasure in doing things: not at all 2. Feeling down, depressed, or hopeless: not at all 3. Trouble falling or staying asleep, or sleeping too much: not at all 4. Feeling tired or having little energy: not at all 5. Poor appetite or overeating: not at all 6. Feeling bad about yourself - or that you are a failure or have let yourself or your family down: not at all 7. Trouble concentrating on things, such as reading the newspaper or watching television: not at all 8. Moving or speaking so slowly that other people could have noticed. Or the opposite - being so fidgety or restless that you have been moving around a lot more than usual: not at all 9. Thoughts that you would be better off or of hurting yourself in some way: not at all Total score: 0 42488 - PHQ-9 Billing: Yes Source: Developed by Drs. Gaston Purvis, Ellie Medina, Lamine Rockwell and colleagues, with an educational darleen from [employer]. Thrive Questionnaire Date Thrive assessed: 03/02/24 I am a: Patient What is your living situation today?: I have a steady place to live Within the past 12 months, did the food you bought not last and you didn't have the money to get more?: Never true Within the past 12 months, did you worry whether your food would run out before you got money to buy more?: Never true Do you have trouble paying for medicines?: No Do you have trouble getting transportation to medical appointments?: No Do you have trouble paying your heating and electricity bill?: No Do you have trouble taking care of your child, family member or friend?: No Do you have trouble with day-to-day activities such as bathing, preparing meals, shopping, managing finances, etc.?: No Are you currently unemployed and looking for a job?: No Are you interested in more education?: No Please select the resources that you would like help with: None Currently or been in a relationship where the following occur: No concerns reported THRIVE Score: 0 AUDIT C Alcohol Use Questionnaire (AUDIT-C) 1. How often do you have a drink containing alcohol?: Never 3. How often do you have six or more drinks on one occasion?: Never Total Score: 0 JERALD-7 AMB Questionnaire JERALD-7 Date JERALD - 7 assessed: 02/01/24 Feeling nervous, anxious, or on edge: 1 = Several days Not being able to stop or control worryin = Not at all Worrying too much about different things: 1 = Several days Trouble relaxin = Several days Being so restless that it is hard to sit still: 0 = Not at all Becoming easily annoyed or irritable: 0 = Not at all Feeling afraid as if something awful might happen: 0 = Not at all Total JERALD-7 score (0-4 normal; 5-9 mild; 10-14 moderate; 15-21 severe): 3 Source: Developed by Drs. Gaston Purvis, Ellie Medina, Lamine Rockwell and colleagues, with an educational darleen from [employer]. JERALD-7 Assessment Billing JERALD-7 Assessment Tool: JERALD-7 Assessment 88514 Review of Systems Const Denies chills, Denies fatigue, Denies fever(s), Denies headache(s) and Denies weakness Eyes Denies change in vision ENT Denies dizziness, Denies headache(s), Denies hearing loss, Denies nasal congestion, Denies sinus pain, Denies sinus pressure and Denies sore throat Card Denies chest pain, Denies lightheadedness, Denies dyspnea and Denies other (palpitations) Resp Denies cough, Denies dyspnea and Denies wheezing GI Denies abdominal pain, Denies melena, Denies hematochezia, Denies change in bowel habits, Denies dyspepsia and Denies nausea Denies hematuria and Denies dysuria Musc Denies abnormal gait, Denies myalgias, Denies arthralgias, Denies numbness and Denies tingling Skin/Breast Denies rash, Denies unusual bruising and Denies wounds Neuro Denies abnormal gait, Denies dizziness, Denies headache(s), Denies memory loss, Denies numbness, Denies Sensory deficit (Neuro), Denies tingling and Denies weakness Psych Denies anxiety, Denies depression and Denies memory loss Endo Denies cold intolerance, Denies fatigue, Denies heat intolerance, Denies polydipsia and Denies polyuria Carlo/Lymph Denies easy bleeding and Denies easy bruising Aller/Immun Denies wheezing Physical exam (Primary Care) Vital Signs: Last Vital Signs Temp 98.1 F 03/02/24 08:04 Pulse 81 03/02/24 08:04 Resp 16 03/02/24 08:04 BP 146/87 H 03/02/24 08:04 Pulse Ox 97 03/02/24 08:04 Oxygen Delivery Method Room Air 03/02/24 08:04 BMI result Body Mass Index 33.0 Tobacco/Smoking Status: Tobacco use Status Tobacco use date assessed 03/02/24 03/02/24 08:03 Patient Tobacco Use Status Current someday Tobacco 03/02/24 08:00 e-Cigarette/Vaping Use Never Used 03/02/24 08:00 PHQ-9: PHQ-9 Score PHQ-9: Total score 0 03/02/24 08:46 Thrive Assessment: Date of Thrive Assessment Date Thrive assessed 03/02/24 03/02/24 08:00 Currently or been in a relationship where the following occur: No concerns reported Const General: no acute distress, well developed, alert and awake Nutritional Appearance: well nourished Orientation/consciousness: patient oriented x3 HENMT Head: Yes normocephalic and Yes atraumatic Ears: hearing grossly normal bilaterally and TM's normal bilaterally General nose exam: Normal external nose present and Normal nares present Mouth: Normal oral and palatal mucosa present and moist mucous membranes Teeth and gingiva: dentition normal Throat: Yes posterior oropharynx normal Eyes Pupils: Equal, round and reactive pupils present and Pupil accommodation reflex normal EOM: EOMs intact bilaterally Neck Neck: Yes normal visual inspection, Yes no lymphadenopathy and Yes trachea midline Thyroid: Thyroid normal Carotids: no bruits Lymphatic: no lymphadenopathy noted Chest Chest palpation & inspection: normal inspection of the chest Resp Effort & Inspection: normal respiratory effort Auscultation: clear to auscultation bilaterally Cardio Rate: regular rate Rhythm: regular rhythm Heart sounds: S1 normal heart sound present, S2 normal heart sound present, no gallops, no murmurs and no rubs Bruits: no abdominal aortic bruits and no carotid bruits GI Palpation (GI): No Abdominal aortic bruit present, Soft to palpation, nontender, No hepatosplenomegaly present and No Rebound tenderness present Auscultation: normal bowel sounds General: Yes no CVA tenderness Back/Spine/Pelvis Back: no CVA tenderness Cervical Spine: cervical ROM normal and No Cervical spine tenderness Thoracic/Lumbar Spine: thoraco-lumbar ROM normal, No pain with thoraco-lumbar ROM, No thoracic spinal tenderness and No lumbar spinal tenderness Skin Lesions: no lesions Rashes: no rashes Trauma: no lacerations or abrasions Wounds: no wounds Nails: normal Neuro General: patient oriented x3, gait normal and CN's II-XI intact bilaterally Cranial nerves: Yes Equal, round and reactive pupils present Cognition (Neuro): normal cognition Gait exam (Neuro): Normal gait present Motor exam (neuro): 5/5 motor strength present throughout Sensory Exam: No Sensory deficit (Neuro) Deep tendon reflexes (DTR's): Right patellar reflex intensity grade: 2+ and Left patellar reflex intensity grade: 2+ Extrem General: Yes normal to inspection and No edema Psych Appearance: grossly normal Affect: normal affect Attitude: cooperative Thought process: Normal thought process present Coding Level of Care Code Est Pt Prev Care 40-64y(49569) Diagnoses Adult general medical exam Z00.00 Prediabetes R73.03 Hypertension I10 Mixed hyperlipidemia E78.2 Hyperlipidemia type: mixed hyperlipidemia Breast cancer screening by mammogram Z12.31 Pap smear for cervical cancer screening Z12.4 Colon cancer screening Z12.11 Additional Codes JERALD-7 Assessment Billing - JERALD-7 Assessment Tool: JERALD-7 Assessment 09610 ([id number]) PHQ-9 - 38660 - PHQ-9 Billing: Yes ([id number]) Assessment & Plan Assessment & Plan (1) Adult general medical exam: Code(s): Z00.00 - Encounter for general adult medical examination without abnormal findings Category: Medical Plan: 58-year-old?female?presents?for?complete?physical?exam Exam?within?limits Encouraged?healthy?diet?with?active?lifestyle?and?plenty?of?exercise (2) Prediabetes: Code(s): R73.03 - Prediabetes Category: Medical Plan: A1c?5.7%?today.??Pre?diabetes. Discussed?lifestyle?changes?including?a?diet?low?in?sugars?and?starches,?exercis e?and?weight?loss. Can?repeat?A1c at?next?visit (3) Hypertension: Code(s): I10 - Essential (primary) hypertension Category: Medical Plan: Blood?pressure?is?still?too?high?since?starting?amlodipine Will?send?script?for?amlodipine?benazepril Watch?salt?in?sodium?in?diet,?work?on?exercise?weight?loss (4) Hyperlipidemia: Code(s): E78.5 - Hyperlipidemia, unspecified Category: Medical Qualifiers: Hyperlipidemia type: mixed hyperlipidemia Qualified Code(s): E78.2 - Mixed hyperlipidemia Plan: LDL?cholesterol?is?significantly?above?goal?of?less?than?100 HDL?cholesterol?is?low Encouraged?a?diet?low?in?saturated?fats?and?cholesterol.??Encouraged?exercise?an d?weight?loss We?discussed?today?that?if?she?is?not?able?bring?her?cholesterol?levels?into?rec ommended?ranges?she?should?consider?medication,?with?her?PCP?at?next?visit (5) Breast cancer screening by mammogram: Code(s): Z12.31 - Encounter for screening mammogram for malignant neoplasm of breast Category: Medical Plan: Patient?says?she?plans?to?schedule?her?mammogram?in?March I?have?put?in?an?order?for?a?mammogram (6) Pap smear for cervical cancer screening: Code(s): Z12.4 - Encounter for screening for malignant neoplasm of cervix Category: Medical Plan: Patient?says?she?plans?to?call?a?physical sciences instructor?for?an?appointment?and?Pap?smear Recommended?she?call?as?soon?as?she?can?and?get?scheduled (7) Colon cancer screening: Code(s): Z12.11 - Encounter for screening for malignant neoplasm of colon Category: Medical Plan: Patient?says?she?has?appointment?early?next?year Plan He?will?return?in?3?months?to?follow- up?hypertension,?pre?diabetes?and?hyperlipidemia. Changed?her?amlodipine?to?amlodipine?benazepril, recommended?dietary?changes?for?hyperlipidemia?and?pre?diabetes. She?will?get?labs?drawn?p rior?to?next?visit?to?review?cholesterol?levels?and?we?discussed?adding?a?medica tion?if?she?is?not?able?to?make?significant?improvements..??She?will?also?be?due ?for?another?A1c?test?to?monitor?pre?diabetes. Orders: Orders MM tomosynthesis screening BI 03/02/24 Z12.31 - Encounter for screening mammogram for malignant neoplasm of breast Microalbumin, Random (w Creat) 03/02/24 I10 - Essential (primary) hypertension Lipid Panel 03/02/24 E78.2 - Mixed hyperlipidemia, Z00.00 - Encounter for general adult medical examination without abnormal findings Comprehensive [place]. Panel Fast 03/02/24 E78.2 - Mixed hyperlipidemia, Z00.00 - Encounter for general adult medical examination without abnormal findings Medications: New amlodipine-benazepril 5-10 mg 1 cap PO DAILY 90 days 90 caps 3RF Discontinued amlodipine Discontinued Reason: Doctor's Order 5 mg PO DAILY 30 days 30 tabs 3RF
[2024-03-02 08:04] VITALS: BP 146/87; PULSE 81; RESP 16; TEMP 36.7; O2SAT 97; BMI 33.0
== END 2024-03-02 08:37 | disposition home or self-care (01) ==
PROVIDERS: PCP Nurse Practitioner Family; Visit Provider Family Medicine
DX: Z00.00 Encounter for general adult medical examination without abnormal findings (principal); R73.03 Prediabetes; I10 Essential (primary) hypertension; E78.2 Mixed hyperlipidemia; Z12.31 Encounter for screening mammogram for malignant neoplasm of breast; Z12.4 Encounter for screening for malignant neoplasm of cervix; Z12.11 Encounter for screening for malignant neoplasm of colon

== ENCOUNTER → 2024-03-02 07:54 | Outpatient (BNVA) | payer OTHER, SELFPAY | PROVIDERS: PCP Nurse Practitioner Family; Visit Provider Nurse Practitioner Family | DX: Z00.00 Encounter for general adult medical examination without abnormal findings (principal); R73.03 Prediabetes; I10 Essential (primary) hypertension; E78.2 Mixed hyperlipidemia | CPT/HCPCS: 96127 ==

== ENCOUNTER 2024-06-07 08:27 | Outpatient (REF) | payer OTHER, SELFPAY ==
--- OUTSIDE RECORDS SUMMARY | 2024-06-07 09:01 | XMS_ITS | Clinical Summary ---
Author Organization [facility] Address [address] [id number] Care Team Providers Care Occupational Therapy Specialist Name Role Phone Lacy Camarillo MD Primary Care Provider Unavailabl e Social History Tobacco Use Types Packs/Day Years Used Date Smoking Tobacco: Never Assessed Comments Unknown Sex and Gender Information Value Date Recorded Sex Assigned at Not on file Legal Sex Female 12:15 PM EST Gender Identity Not on file Sexual Orientation Not on file Plan of Treatment Not on file Care Teams Occupational Therapy Specialist Relationship Specialty Start Date End Date Lacy Camarillo MD [address] [place] [address] PCP - General 06/27/17
--- OUTSIDE RECORDS SUMMARY | 2024-06-07 09:01 | XMS_ITS | Clinical Summary ---
Author Organization [facility] Address [address] [place] [address] Care Team Providers Care Photo Checker And Assembler Name Role Phone Pcp, No Primary Care Provider Unavailabl e Social History Tobacco Use Types Packs/Day Years Used Date Smoking Tobacco: Never Assessed Sex and Gender Information Value Date Recorded Sex Assigned at Not on file Gender Identity Not on file Sexual Orientation Not on file Plan of Treatment Health Maintenance Due Date Last Done Comments Hepatitis C Virus Screening 1965 HIV Screening 11/10/1976 DTaP/Tdap/Td Vaccines (1 - Tdap) 11/10/1982 Pap Smear (Ages 21-65) 11/10/1984 Mammogram 2003 Colonoscopy 11/10/2008 Pneumococcal Vaccines 50+ (1 of 1 - PCV) 11/10/2013 Zoster (Shingles) Vaccine (1 of 2) 11/10/2013 Influenza Vaccine 10/27/2023 COVID-19 Vaccine ( - 2023-2 5 season) 2023 RSV Vaccine 60 years and old er and Patients (1 - 1-dose 75+ series) 11/10/2038 Hepatitis B Vaccines Aged Out No long er eligible based on patient's age to complete this topic Care Teams Photo Checker And Assembler Relationship Specialty Start Date End Date Pcp, No PCP - General General Medicine 02/28/17
[2024-06-07 12:08] LABS: Microalbum/Creatinine Ratio Ur 7.3 ug/mg cr (<30)
[2024-06-07 12:21] LABS: Alanine Aminotransferase 13 U/L (0-31); Albumin Level 4.1 g/dL (3.5-5.0); Alkaline Phosphatase 100 U/L (39-117); Anion Gap 10 (12-20); Aspartate Amino Transferase 17 U/L (5-31); Bilirubin Total 0.5 mg/dL (0.0-1.0); Blood Urea Nitrogen 12 mg/dL (9-16); Calcium 9.4 mg/dL (8.4-10.2); Carbon Dioxide 27 mmol/L (22-29); Chloride 109 mmol/L (96-108); Cholesterol 224 mg/dL (<200); Estimated Glomerular Filt Rate > 60; Glucose Fasting 108 mg/dL (60-99); HDL Cholesterol 40 mg/dL (>40); LDL Cholesterol Calculated 154 mg/dL (<100); Potassium 4.2 mmol/L (3.3-5.1); Sodium 142 mmol/L (135-145); Total Protein 7.6 g/dL (6.5-8.0); Triglycerides 150 mg/dL (<150)
== END 2024-06-07 08:28 | disposition home or self-care (01) ==
LOC: HO.WFDLDS 08:27
PROVIDERS: Visit Provider Family Medicine
DX: Z00.00 Encounter for general adult medical examination without abnormal findings (principal); E78.2 Mixed hyperlipidemia; I10 Essential (primary) hypertension
CPT/HCPCS: 36415; 80053; 80061; 82043; 82570

== ENCOUNTER 2024-06-08 08:23 | Outpatient (AMB) | payer OTHER, SELFPAY ==
--- NOTE | 2024-06-08 08:26 | A.OFFPC_ITS ---
Vital Signs 06/08/24 08:29 06/08/24 08:55 Height 5 ft 6 in Weight 207 lb BMI 33.4 BP 146/84 H 126/74 Blood Pressure Location Rt brachial Rt brachial Position Sitting Sitting Respiration 16 Pulse 91 Pulse Source Pulse Oximeter Temp 98.2 F Temp Source Temporal Artery Scan Pulse Oximetry (%) 99 Oxygen Delivery Method Room Air Intake Visit Reasons: f/u HTN, Pre diabetes, HLD Intake Note: patient here for HTN, pre diabetes, HLD Sales Hunter Required: No Is last menstrual period known: No Post menopausal: No Patient : No Allergies No Known Allergies Allergy (Verified 06/08/24 08:49) Medication List - Last Reconciled 06/08/24 by John Bejarano CNP amlodipine-benazepril 5-10 mg 1 cap PO DAILY 90 days cholecalciferol (vitamin D3) 25 mcg PO DAILY 90 days sertraline 100 mg PO DAILY 30 days Tobacco use date assessed: 06/08/24 Dental Screening Dental Screen Date: 06/08/24 Did you have a dental visit in the last 12 months?: Yes Did you have a dental problem in the last 6 months where you did not have access to dental care?: No Was dental information given to patient?: Patient has dentist HPI HPI Comments History of Present Illness Details 58-year-old female presents for hyperten wilber, prediabetes, and hyperlipidemia follow-up. She admits to taking her medications as prescribed without adverse reactions. She has been making healthy dietary changes and exercising routinely. She notes controlled anxiety and depressive symptoms. She offers no complaints and denies acute symptoms at this time. [facility] Medical History EtOH dependence Depression Anxiety Surgical History History of ankle surgery Family History (Updated 03/02/24 @ 08:03 by Karla Torres MA) Mother Hypertension Thyroid disorder Social History Household Members: None Housing: House Alcohol intake: former Patient Tobacco Use Status: Current someday Tobacco user Cigarettes Per Day: 5 e-Cigarette/Vaping Use: Never Used service: No Current occupational status: employed Current occupation: [employer] Cognitive needs: No Hearing needs: No Vision needs: No Questionnaire PHQ-9 Over the last 2 weeks, how often have you been bothered by any of the following problems? 1. Little interest or pleasure in doing things: not at all 2. Feeling down, depressed, or hopeless: not at all 3. Trouble falling or staying asleep, or sleeping too much: several days 4. Feeling tired or having little energy: not at all 5. Poor appetite or overeating: not at all 6. Feeling bad about yourself - or that you are a failure or have let yourself or your family down: not at all 7. Trouble concentrating on things, such as reading the newspaper or watching television: not at all 8. Moving or speaking so slowly that other people could have noticed. Or the opposite - being so fidgety or restless that you have been moving around a lot more than usual: not at all 9. Thoughts that you would be better off or of hurting yourself in some way: not at all Total score: 1 Depression Screening Interpretation: Negative Depression Screening Done: Yes Source: Developed by Drs. Gaston Purvis, Ellie Medina, Lamine Rockwell and colleagues, with an educational darleen from [employer]. Thrive Questionnaire Date Thrive assessed: 03/02/24 I am a: Patient What is your living situation today?: I have a steady place to live Within the past 12 months, did the food you bought not last and you didn't have the money to get more?: Never true Within the past 12 months, did you worry whether your food would run out before you got money to buy more?: Never true Do you have trouble paying for medicines?: No Do you have trouble getting transportation to medical appointments?: No Do you have trouble paying your heating and electricity bill?: No Do you have trouble taking care of your child, family member or friend?: No Do you have trouble with day-to-day activities such as bathing, preparing meals, shopping, managing finances, etc.?: No Are you currently unemployed and looking for a job?: No Are you interested in more education?: No Please select the resources that you would like help with: None Currently or been in a relationship where the following occur: No concerns reported THRIVE Score: 0 AUDIT C Alcohol Use Questionnaire (AUDIT-C) 1. How often do you have a drink containing alcohol?: Never Total Score: 0 JERALD-7 AMB Questionnaire JERALD-7 Date JERALD - 7 assessed: 02/01/24 Feeling nervous, anxious, or on edge: 0 = Not at all Not being able to stop or control worryin = Not at all Worrying too much about different things: 0 = Not at all Trouble relaxin = Not at all Being so restless that it is hard to sit still: 0 = Not at all Becoming easily annoyed or irritable: 0 = Not at all Feeling afraid as if something awful might happen: 0 = Not at all Total JERALD-7 score (0-4 normal; 5-9 mild; 10-14 moderate; 15-21 severe): 0 Source: Developed by Drs. Gaston Purvis, Ellie Medina, Lamine Rockwell and colleagues, with an educational darleen from [employer]. Review of Systems Const Details: Const Denies chills, Denies fatigue, Denies fever(s), Denies headache(s) and Denies weakness ENT Denies dizziness and Denies headache(s) Card Denies chest pain, Denies lightheadedness, Denies dyspnea and Denies other (Palpitations) Resp Denies cough, Denies dyspnea, Denies wheezing and Denies other ( shortness of breath) GI Denies abdominal pain, Denies melena, Denies hematochezia, Denies change in bowel habits, Denies dyspepsia and Denies nausea Denies hematuria and Denies dysuria Musc Denies abnormal gait, Denies myalgias, Denies arthralgias, Denies numbness and Denies tingling Skin/Breast Denies rash, Denies unusual bruising and Denies wounds Neuro Denies abnormal gait, Denies dizziness, Denies headache(s), Denies memory loss, Denies numbness, Denies Sensory deficit (Neuro), Denies tingling and Denies weakness Psych Denies anxiety, Denies depression, Denies memory loss Endo Denies cold intolerance, Denies fatigue, Denies heat intolerance, Denies polydipsia and Denies polyuria Aller/Immun Denies wheezing Physical exam (Primary Care) Vital Signs: Last Vital Signs Temp 98.2 F 06/08/24 08:29 Pulse 91 06/08/24 08:29 Resp 16 06/08/24 08:29 BP 146/84 H 06/08/24 08:29 Pulse Ox 99 06/08/24 08:29 Oxygen Delivery Method Room Air 06/08/24 08:29 BMI result Body Mass Index 33.4 Tobacco/Smoking Status: Tobacco use Status Tobacco use date assessed 06/08/24 06/08/24 08:32 Patient Tobacco Use Status Current someday Tobacco 06/08/24 08:28 e-Cigarette/Vaping Use Never Used 06/08/24 08:28 PHQ-9: PHQ-9 Score PHQ-9: Total score 1 06/08/24 08:28 Depression Screening Interpretation: Negative Thrive Assessment: Date of Thrive Assessment Date Thrive assessed 03/02/24 06/08/24 08:28 Currently or been in a relationship where the following occur: No concerns reported Const Other: General: no acute distress and well developed Nutritional Appearance: well nourished Orientation/consciousness: patient oriented x3 HENMT Head: Yes normocephalic and Yes atraumatic Eyes General: appearance normal, both eyes and all related structures Pupils: Equal, round and reactive pupils present EOM: EOMs intact bilaterally Resp Effort & Inspection: normal respiratory effort Auscultation: clear to auscultation bilaterally Cardio Rate: regular rate Rhythm: regular rhythm Heart sounds: S1 normal heart sound present, S2 normal heart sound present, no gallops, no murmurs and no rubs GI Palpation (GI): No Abdominal aortic bruit present, Soft to palpation, nontender, No hepatosplenomegaly present and No Rebound tenderness present Auscultation: normal bowel sounds General: Yes no CVA tenderness Back/Spine/Pelvis Back: no CVA tenderness Cervical Spine: cervical ROM normal and No Cervical spine tenderness Thoracic/Lumbar Spine: thoraco-lumbar ROM normal, No pain with thoraco-lumbar ROM, No thoracic spinal tenderness and No lumbar spinal tenderness Extrem General: Yes normal to inspection, No edema and No calf tenderness Skin General: warm and dry. Normal skin color. Normal skin turgor Neuro General: patient oriented x3, gait normal and no focal neuro deficit Cranial nerves: Yes Equal, round and reactive pupils present Cognition (Neuro): normal cognition Gait exam (Neuro): Normal gait present Sensory Exam: No Sensory deficit (Neuro) Psych Appearance: grossly normal Affect: normal affect Attitude: cooperative Thought process: Normal thought process present Coding Level of Care Code Est Pt Level 4 (93689) Diagnoses Hypertension I10 Mixed hyperlipidemia E78.2 Hyperlipidemia type: mixed hyperlipidemia Prediabetes R73.03 Anxiety F41.9 Depression F32.A Assessment & Plan Assessment & Plan (1) Hypertension: Code(s): I10 - Essential (primary) hypertension Category: Medical Plan: Resting blood pressure is 126/74, within goal of less than 140/90. Continue current treatment regimen. Follow-up in 3 months or return sooner with symptoms or concerns. Verbalized understanding and agreed with treatment plan. (2) Hyperlipidemia: Code(s): E78.5 - Hyperlipidemia, unspecified Category: Medical Qualifiers: Hyperlipidemia type: mixed hyperlipidemia Qualified Code(s): E78.2 - Mixed hyperlipidemia Plan: Recent triglycerides elevated, 150 from 170, total cholesterol is elevated, 224 from 221, LDL is elevated, 154 form 155, and HDL is slightly low, 40 from 32. Encouraged to continue to make healthy lifestyle changes. May take fish oil. Fiber encouraged in her diet. Fast for 10-12 hours, may drink water, and perform lipid panel blood work 2-3 days before next visit. Follow-up in 3 months. Verbalized understanding and agreed with treatment plan. (3) Prediabetes: Code(s): R73.03 - Prediabetes Category: Medical Plan: A1c on 03/02/2024 was 5.7%. Advised to limit carbs and exercise routinely. Will recheck A1c in 3 months. Verbalized understanding and agreed with treatment plan. (4) Anxiety: Code(s): F41.9 - Anxiety disorder, unspecified Category: Medical Plan: Controlled anxiety and depressive symptoms. PHQ-9 and JERALD-7 scores are normal. Continue current treatment regimen. Follow-up in 3 months. Verbalized understanding and agreed with treatment plan. (5) Depression: Code(s): F32.A - Depression, unspecified Category: Medical Plan: Plan as above. Orders: Orders Lipid Panel 3 Months E78.2 - Mixed hyperlipidemia Medications: Changed From sertraline 100 mg PO DAILY 30 days 30 tabs 1RF To sertraline 100 mg PO DAILY 90 days 90 tabs 1RF
[2024-06-08 08:29] VITALS: BP 146/84; PULSE 91; RESP 16; TEMP 36.8; O2SAT 99; BMI 33.4
--- OUTSIDE RECORDS SUMMARY | 2024-06-08 08:36 | XMS_ITS | Clinical Summary ---
Author Organization [facility] Address [address] [id number] Care Team Providers Care Catalyst Unit Operator Name Role Phone Lacy Camarillo MD Primary Care Provider Unavailabl e Social History Tobacco Use Types Packs/Day Years Used Date Smoking Tobacco: Never Assessed Comments Unknown Sex and Gender Information Value Date Recorded Sex Assigned at Not on file Legal Sex Female 12:15 PM EST Gender Identity Not on file Sexual Orientation Not on file Plan of Treatment Not on file Care Teams Catalyst Unit Operator Relationship Specialty Start Date End Date Lacy Camarillo MD [address] [place] [address] PCP - General 06/27/17
--- OUTSIDE RECORDS SUMMARY | 2024-06-08 08:36 | XMS_ITS | Clinical Summary ---
Author Organization [facility] Address [address] [place] [address] Care Team Providers Care Automat Watcher Name Role Phone Pcp, No Primary Care [...] age to complete this topic Care Teams Automat Watcher Relationship Specialty Start Date End Date Pcp, No PCP - General General Medicine 02/28/17
[2024-06-08 08:55] VITALS: BP 126/74
== END 2024-06-08 09:02 | disposition home or self-care (01) ==
LOC: HO.HMCFM 08:24
PROVIDERS: PCP Nurse Practitioner Family; Visit Provider Nurse Practitioner Family
DX: I10 Essential (primary) hypertension (principal); E78.2 Mixed hyperlipidemia; R73.03 Prediabetes; F41.9 Anxiety disorder, unspecified; F32.A Depression, unspecified

== ENCOUNTER → 2024-06-08 08:23 | Outpatient (BNVA) | payer OTHER, SELFPAY | PROVIDERS: PCP Nurse Practitioner Family; Visit Provider Nurse Practitioner Family ==

== ENCOUNTER 2024-06-22 08:10 | Day surgery (SDC) | payer OTHER, SELFPAY ==
--- NOTE | 2024-06-21 09:10 | HO.ANESPROP2 ---
Documented by User: Cecilia Sepulvead NP 06/21/24 09:10 HPI - Anesthesia Eval Consult details Narrative: 58yo F for Colonoscopy PMFSH Active Problems Active Problems: All Active Problems Prediabetes (Acute) Adult general medical exam (Acute) Hypertension (Acute) Elevated blood pressure reading without diagnosis of hypertension (Acute) Viral upper respiratory illness (Acute) Cough (Acute) Ready to quit smoking (Acute) Hyperlipidemia (Acute) Vitamin D deficiency (Acute) Insomnia (Acute) Breast cancer screening by mammogram (Acute) Colon cancer screening (Acute) Pap smear for cervical cancer screening (Acute) Depression (Acute) Anxiety (Acute) Physical exam, annual (Acute) Laboratory tests ordered as part of a complete physical exam (CPE) (Acute) Past Medical History Medical History (Updated 03/02/24 @ 08:40 by Shravan Bangura MD) EtOH dependence Depression Anxiety Family History Family History (Updated 03/02/24 @ 08:03 by Karla Torres MA) Mother Hypertension Thyroid disorder Surgical History Surgical History (Updated 06/22/24 @ 08:18 by More Lyles RN) History of section History of ankle surgery Social History Social History Household Members: None Housing: House Are you a primary customer care manager to a significant other at home: No Do you presently have visiting nurse or other home services: No Alcohol intake: former Patient Tobacco Use Status: Current everyday Tobacco user Cigarettes Per Day: 10 e-Cigarette/Vaping Use: Never Used Use of substances other than those prescribed or required for medical reasons: No Have you been hit, kicked, punched, or otherwise hurt by someone within the past year? If so, by whom?: No Are you DNR?: No Advance Directives: No Advance Directives Information Provided: Yes Recently lost weight without trying: No Nutrition Risks: No Nutritional Risk service: No Current occupational status: employed Current occupation: [employer] Cognitive needs: No Hearing needs: No Vision needs: No Meds Allergies Allergy/AdvReac Type Severity Reaction Status Date / Time No Known Allergies Allergy Verified 06/22/24 08:19 Assessment and Plan Assessment Anesthesia Assessment: Chart Reviewed Documented by User: Kaya Moon MD 06/22/24 08:43 PMF Past Medical History Medical History (Updated 03/02/24 @ 08:40 by Shravan Bangura MD) EtOH dependence Depression Anxiety Family History Family History (Updated 03/02/24 @ 08:03 by Karla Torres MA) Mother Hypertension Thyroid disorder Family history of problems with anesthesia: No Surgical History Surgical History (Updated 06/22/24 @ 08:18 by More Lyles RN) History of section History of ankle surgery History of Problems with Anesthesia: No Social History Social History Household Members: None Housing: House Are you a primary customer care manager to a significant other at home: No Do you presently have visiting nurse or other home services: No Alcohol intake: former Patient Tobacco Use Status: Current everyday Tobacco user Cigarettes Per Day: 10 e-Cigarette/Vaping Use: Never Used Use of substances other than those prescribed or required for medical reasons: No Have you been hit, kicked, punched, or otherwise hurt by someone within the past year? If so, by whom?: No Are you DNR?: No Advance Directives: No Advance Directives Information Provided: Yes Recently lost weight without trying: No Nutrition Risks: No Nutritional Risk service: No Current occupational status: employed Current occupation: [employer] Cognitive needs: No Hearing needs: No Vision needs: No Meds Allergies Allergy/AdvReac Type Severity Reaction Status Date / Time No Known Allergies Allergy Verified 06/22/24 08:19 Exam Airway Mallampati Class: II (caps laterally) TM Dist: >3cm Neck ROM: Full Heart: rrr Lungs: ronchi B/L, ordered updraft Assessment and Plan Assessment Anesthesia Assessment: Anesthesia Plan Discussed Final Anesthetic Review Family History of Problems with Anesthesia: No History of Problems with Anesthesia: No NPO: Yes ASA Class: II Final Preanesthetic Review: No Changes in Pt Med Stat, Meds/Allgs Chart Reviewed and Consent Obtained/Reviewed Patient Risk: Low Procedure Risk: Low Anesthetic Plan Anesthetic Plan: MAC: Disposition: Standard PACU
[2024-06-22 08:22] VITALS: BP 132/75; PULSE 78; RESP 16; TEMP 36.7; O2SAT 98; BMI 32.0
--- NOTE | 2024-06-22 08:33 | MHC.SHP ---
Pre-Procedural Eval Section A - 24 Hr Update-Section A only Date of Service: 06/22/24 The patient is an INPATIENT: No The patient has been examined within 24 hours of the surgical procedure. The History & Physical has been completed within 30 days and I have reviewed it.: No Section B - Complete if H&P > 30 days Chief Complaint: Colon cancer screening Relevant Family History (Specify if Yes): No Relevant Social History: Tobacco Use Present Medications: see Short Stay Collaborative assessment Medical History: Significant History (Anxiety Depression EtOH dependence, hypertension, hyperlipidemia) History of Previous Operations: Relevant previous surgery/procedure and date(s) (History of ankle surgery) Allergies: Allergies Allergy/AdvReac Type Severity Reaction Status Date / Time No Known Allergies Allergy Verified 06/22/24 08:19 Review of Systems Sugical H&P ROS: Negative: Constitution, Cardiovascular, Respiratory and Gastrointestinal Exam Surgical H&P Exam: Normal: Heart, Normal: Lungs, Normal: Extremities and Normal: Abdomen Plan Diagnosis/Plan: Unchanged I have reviewed the history and physical and performed a pertinent physical examination on my patient. No changes have occurred unless specified. Time Spent With Patient Time: Total time managing care of this patient today ____ minutes.
[2024-06-22] MEDS: Lactated Ringers 1,000 ML 100 ML IVCONT (08:35)
[2024-06-22] MEDS: Albuterol Sulfate (0.083%) 2.5 MG/3 ML VIAL.NEB INHALE (08:41)
[2024-06-22 08:43] VITALS: PULSE 76; RESP 13; O2SAT 98
--- NOTE | 2024-06-22 09:51 | P.OPN-COLO_ITS ---
Colonoscopy Operative Note Operative Note Date of Service: 06/22/24 Narrative: COLONOSCOPY TILL CECUM WITH SNARE POLYPECTOMY AND HEMOCLIP PLACEMENT Pre-op diagnosis: Colon cancer screening (First colon). Post-op diagnosis:? Colon polyps, Diverticulosis, hemorrhoids Endoscopist:? Shell Vyas MD Anesthesia:?MAC Consent: Indications for the procedure and potential complications of bleeding, perforation, reaction to medications and missed diagnosis were discussed with the patient and informed consent was obtained. Instrument: Olympus PCF H 190 L variable stiffness pediatric colonoscope Monitoring: Vital signs and clinical assessment, intermittent blood pressure monitoring, continuous EKG monitoring, Pulse oximetry and Carbon Dioxide monitoring were done throughout the procedure. Please see anesthesia flowsheet. Colon withdrawl time was 21 minutes. Procedure: The patient was placed in the left lateral decubitis position and pre-procedure medications were administered. After a digital rectal examination of the ano-rectum, the video colonoscope was inserted into the rectum and advanced through the colon to the cecum. The colonoscope was slowly withdrawn in a retrograde panoramic fashion and the colon mucosa was carefully examined including a retroflexed view of the rectum. Findings and interventions are described below. Procedure Difficulty: without difficulty Findings: Terminal Ileum: Not evaluated Cecum: A 10 mm sessile polyp - removed with a hot snare. Ascending Colon: Normal Transverse Colon: Normal Descending Colon: Normal Sigmoid Colon: A 6-7 mm hyperplastic appearing polyp - removed with a cold snare. Moderate diverticulosis Rectum: A 12-15 mm sessile polyp in the proximal rectum at 12 cms - removed with a hot snare. Polypectomy site was closed with 1 hemoclip. Ano-rectum: Moderate internal hemorrhoids Colon preparation: Good after some irrigation. [place] Bowel Preparation Scale Right colon; 2 Transverse colon: 2 Left colon; 2 (0 = Unprepared colon segment with mucosa not seen due to solid stool that cannot be cleared. 1 = Portion of mucosa of the colon segment seen, but other areas of the colon segment not well seen due to staining, residual stool and/or opaque liquid. 2 = Minor amount of residual staining, small fragments of stool and/or opaque l iquid, but mucosa of colon segment seen well. 3 = Entire mucosa of colon segment seen well with no residual staining, small fragments of stool or opaque liquid) Impression and Post Procedure Diagnosis: Colonoscopy Findings: Three small to medium sized polyps were removed Moderate diverticulosis seen in the sigmoid colon Moderate hemorrhoids on retroflexed exam. Plan: I will send a letter with polyp biopsy results Repeat Colonoscopy in 3-5 years if polyps are adenomatous and 10 year if polyps are hyperplastic. Above findings were reviewed with the patient and relevant handouts were given and the discharge area.
[2024-06-22 09:57] VITALS: BP 120/79; PULSE 89; RESP 16; TEMP 36.2; O2SAT 98
[2024-06-22 10:12] VITALS: BP 123/75; PULSE 72; RESP 17; TEMP 36.4; O2SAT 96
[2024-06-22 10:27] VITALS: BP 127/83; PULSE 75; RESP 16; TEMP 36.5; O2SAT 98
== END 2024-06-22 11:00 | disposition home or self-care (01) ==
PROVIDERS: PCP Family Medicine; Visit Provider Internal Medicine Gastroenterology
PROC: 0DJD8ZZ Inspection of Lower Intestinal Tract, Via Natural or Artificial Opening Endoscopic (ICD-10-PCS; CPT 45378; principal; 2024-06-22 09:20)
DX: Z12.11 Encounter for screening for malignant neoplasm of colon (principal); D12.0 Benign neoplasm of cecum; D12.8 Benign neoplasm of rectum; K63.5 Polyp of colon; K57.30 Diverticulosis of large intestine without perforation or abscess without bleeding; K64.8 Other hemorrhoids; I10 Essential (primary) hypertension; E78.5 Hyperlipidemia, unspecified; F32.A Depression, unspecified; F41.9 Anxiety disorder, unspecified; F10.20 Alcohol dependence, uncomplicated; F17.210 Nicotine dependence, cigarettes, uncomplicated; Z79.899 Other long term (current) drug therapy; Z98.890 Other specified postprocedural states
CPT/HCPCS: 45385; 88305; 94640; J2003; J2704

== ENCOUNTER → 2024-06-22 08:10 | Outpatient (BNV) | payer OTHER, SELFPAY | PROVIDERS: PCP Family Medicine; Visit Provider Internal Medicine Gastroenterology | DX: Z12.11 Encounter for screening for malignant neoplasm of colon (principal); D12.0 Benign neoplasm of cecum; D12.8 Benign neoplasm of rectum; K57.30 Diverticulosis of large intestine without perforation or abscess without bleeding | CPT/HCPCS: 45385 ==